=== PATIENT | female | born 1985 | race Two or more races ===

== ENCOUNTER 2024-07-30 14:08 | Outpatient (AMB) | payer MEDICAID, SELFPAY ==
[2024-07-30 14:45] VITALS: BP 119/65; PULSE 80; RESP 19; TEMP 36.2; O2SAT 98; BMI 29.8
--- NOTE | 2024-07-30 14:45 | ORTHONT_ITS ---
Vital signs 07/30/24 14:45 Height 1.71 m Height Method Stated Weight 87.628 kg Weight Measurement Method Standing Scale BMI 29.8 BP 119/65 Blood Pressure Source Automatic Cuff Blood Pressure Location Left Upper Arm Position Sitting Respiration 19 Pulse 80 Pulse Source Monitor Temp 97.1 F Temp Source Temporal Artery Scan Pulse Oximetry (%) 98 Oxygen Delivery Method Room Air Med/Allergies Allergies & Medications Allergies No Known Allergies Allergy (Verified 07/30/24 14:46) Medication Reconciliation diclofenac sodium 1 % topical gel (Voltaren Arthritis Pain) 2 g topical QID 07/12/23 [History Confirmed 07/30/24] diclofenac sodium 25 mg tablet,delayed release 25 mg PO BID 07/12/23 [History Confirmed 07/30/24] ibuprofen 200 mg tablet 200 mg PO Q6H PRN 07/12/23 [History Confirmed 07/30/24] meloxicam 7.5 mg tablet 7.5 mg PO QDAY #45 tabs 07/30/24 [Rx] Exam Exam Patient is in no acute distress and is cooperative with the examination today. Breathing is nonlabored. In no respiratory distress. Bilateral extremities were evaluated and demonstrates sensation intact to light touch. Palpable pedal pulses are present. No significant edema is present. Bilateral hips were examined. The patient has no pain with log roll of the hips. Internal rotation to 30 degrees and external rotation to 30 degrees is painless. Negative FADIR. Left knee was examined today. The right knee is in reasonable alignment. Range of motion from 0-120 degrees. Knee is stable to varus and valgus as well as AP translation with <5mm. Patient has a negative McMurrays. There is no pain with patellofemoral compression and no crepitus noted. The knee is tender to palpation. Right knee demonstrates range of motion from 0 to 110 degrees. The knee is tender to palpation medially. An MRI of her right knee was reviewed by me. This is from [facility]. This demonstrates intact meniscus and collateral and cruciate ligaments. An MRI of the lumbar spine demonstrates multilevel degenerative changes. I do not see any significant central canal stenosis Assessment and Plan Problem List (1) Lumbar radiculopathy: Status: Acute Plan: 37-year-old female with back pain and bilateral knee pain. The MRI of the right knee was normal. She does have a lot of radicular symptoms down her leg. We recommend that she see a nonoperative spine physician. We gave her home exercises. Recommended physical for her back. We do not have any surgical treatments that I would recommend. She has already tried a lateral release and does have anterior knee pain. I do recommend continued physical therapy at this point (2) Lumbar stenosis: Status: Acute Office Procedures GNS Level of Care Nursing/Assessment Patient Status: Established Patient Nursing Assessment/Reassesment: Medication Reconciliation, Update PMH in EMR and Vital Signs Coordination of Care: Complex Care/Chronic Disease 5 or more, Education Complex Pt/Fam, Consent,records obtained, informed consent, Results/Orders obtained and Staff clarify orders Established Patient Charge Established Patient Point Assignment: 105 Established Patient Point Charge: EP Level 3 (80-115) MA Intake Visit Data Collection New Patient or Established: Established Patient (seen at [facility] within 3 years) Reason for Visit:: MRI RESULTS Telecommunications Field Technician Required: No Do You Feel Safe at Home: Yes Questionairres Past Medical History Past Medical History Have you ever been diagnosed with any of the following: Respiratory Problems Smoking: No Smoking Exposure: Yes Reproductive Problems Breast Cancer: Yes Subjective Visit Visit for: follow up visit and MRI Immunization / Flu Flu Vaccine in the Last 12 Months: No Flu Vaccine Exclusion Criteria: No Exclusion Criteria History of Present Illness Chief complaint: MRI RESULTS Patient is a 38-year-old female with right knee pain. She had a lateral release done reports that this made the pain worse. She was supposed to have a patellar maltracking issues. She tried extensive physical therapy Personal History BMI Counceling provided: Yes Pain Pain level (0-10): 8 Pain duration: CONSTANT Pain quality: sharp and aching Associated signs & symptoms: numbness Ambulatory data Ambulatory device: none Review of Systems Review of Systems: All systems negative unless otherwise noted in HPI.
== END 2024-07-30 15:03 | disposition home or self-care (01) ==
PROVIDERS: PCP Physician Assistant; Referring Provider Physician Assistant; Supervising Provider Orthopaedic Surgery Adult Reconstructive Orthopaedic Surgery; Visit Provider Orthopaedic Surgery Adult Reconstructive Orthopaedic Surgery
DX: M54.16 Radiculopathy, lumbar region (principal); M48.061 Spinal stenosis, lumbar region without neurogenic claudication; M25.562 Pain in left knee; M25.561 Pain in right knee
CPT/HCPCS: 99213; G0463

== ENCOUNTER 2024-11-27 09:33 | Outpatient (AMB) | payer MEDICAID, SELFPAY ==
[2024-11-27 10:02] VITALS: BP 110/70; PULSE 70; RESP 18; TEMP 36.3; O2SAT 98; BMI 29.2
--- NOTE | 2024-11-27 10:02 | ORTHONT_ITS ---
Vital signs 11/27/24 10:02 Height 1.71 m Height Method Measured Weight 85.531 kg Weight Measurement Method Standing Scale BMI 29.2 BP 110/70 Blood Pressure Source Automatic Cuff Blood Pressure Location Left Upper Arm Position Sitting Respiration 18 Pulse 70 Pulse Source Monitor Temp 97.3 F Temp Source Temporal Artery Scan Pulse Oximetry (%) 98 Oxygen Delivery Method Room Air Med/Allergies Allergies & Medications Allergies No Known Allergies Allergy (Verified 11/27/24 10:03) Medication Reconciliation diclofenac sodium 1 % topical gel (Voltaren Arthritis Pain) 2 g topical QID 07/12/23 [History Confirmed 11/27/24] diclofenac sodium 25 mg tablet,delayed release 25 mg PO BID 07/12/23 [History Confirmed 11/27/24] ibuprofen 200 mg tablet 200 mg PO Q6H PRN 07/12/23 [History Confirmed 11/27/24] meloxicam 7.5 mg tablet 7.5 mg PO QDAY #45 tabs 07/30/24 [Rx Confirmed 11/27/24] meloxicam 7.5 mg tablet 7.5 mg PO QDAY #45 tabs 11/27/24 [Rx] Exam Exam Patient is in no acute distress and is cooperative with the examination today. Breathing is nonlabored. In no respiratory distress. Bilateral extremities were evaluated and demonstrates sensation intact to light touch. Palpable pedal pulses are present. No significant edema is present. Bilateral hips were examined. The patient has no pain with log roll of the hips. Internal rotation to 30 degrees and external rotation to 30 degrees is painless. Negative FADIR. Left knee was examined today. The right knee is in reasonable alignment. Range of motion from 0-120 degrees. Knee is stable to varus and valgus as well as AP translation with <5mm. Patient has a negative McMurrays. There is no pain with patellofemoral compression and no crepitus noted. The knee is tender to palpation. Right knee demonstrates range of motion from 0 to 110 degrees. The knee is tender to palpation medially. An MRI of her right knee was reviewed by me. This is from [facility]. This demonstrates intact meniscus and collateral and cruciate ligaments. An MRI of the lumbar spine demonstrates multilevel degenerative changes. I do not see any significant central canal stenosis Assessment and Plan Problem List (1) Lumbar radiculopathy: Status: Acute Plan: 37-year-old female with back pain and bilateral knee pain. The MRI of the right knee was normal. She does have a lot of radicular symptoms down her leg. We recommend that she see a nonoperative spine physician. We gave her home exercises. We recommend continued physical therapy as soon as she is to see her back specialist (2) Lumbar stenosis: Status: Acute Office Procedures GNS Level of Care Nursing/Assessment Patient Status: Established Patient Nursing Assessment/Reassesment: Medication Reconciliation, Update PMH in EMR and Vital Signs Coordination of Care: Complex Care and Chronic Disease 1-5, Education Complex Pt/Fam, Consent,records obtained, informed consent, Results/Orders obtained and Staff clarify orders Established Patient Charge Established Patient Point Assignment: 95 Established Patient Point Charge: EP Level 3 (80-115) MA Intake Visit Data Collection New Patient or Established: Established Patient (seen at [facility] within 3 years) Reason for Visit:: RIGHT KNEE F/U AND RIGHT HIP F/U Seen by Clinical Staff ONLY (RN/MA): No Cardiology Clinical Nurse Specialist Required: No PCP or OBGYN visit in last 3 months: Yes Hx Now: No Do You Feel Safe at Home: Yes Authorities Contacted: N/A Questionairres Past Medical History Past Medical History Have you ever been diagnosed with any of the following: Respiratory Problems Smoking: No Smoking Exposure: Yes Reproductive Problems Breast Cancer: Yes Subjective Visit Visit for: follow up visit, hip and knee Immunization / Flu Flu Vaccine in the Last 12 Months: No Flu Vaccine Exclusion Criteria: No Exclusion Criteria History of Present Illness Chief complaint: RIGHT KNEE F/U AND RIGHT HIP F/U Patient is a 38-year-old female with right knee pain. She had a lateral release done reports that this made the pain worse. She was supposed to have a patellar maltracking issues. She tried extensive physical therapy Personal History Red flag PMH: none BMI Counceling provided: Yes Pain Pain level (0-10): 9 Pain duration: CONSTANT Pain location: anterior Pain quality: sharp and tingling Associated signs & symptoms: weakness Ambulatory data Ambulatory device: none Treatments Number of previous injections: 2 Improvement with previous injections: No Improvement with PT: No Improvement with NSAIDS: yes Review of Systems Review of Systems: All systems negative unless otherwise noted in HPI.
== END 2024-11-27 10:18 | disposition home or self-care (01) ==
PROVIDERS: PCP Nurse Practitioner Family; Referring Provider Nurse Practitioner Family; Supervising Provider Orthopaedic Surgery Adult Reconstructive Orthopaedic Surgery; Visit Provider Orthopaedic Surgery Adult Reconstructive Orthopaedic Surgery
DX: M54.16 Radiculopathy, lumbar region (principal); M25.562 Pain in left knee; M25.561 Pain in right knee; M48.061 Spinal stenosis, lumbar region without neurogenic claudication
CPT/HCPCS: 99213; G0463